=== PATIENT | female | born 1985 | race Caucasian/White ===

== ENCOUNTER 2022-09-25 18:23 | Emergency (ER) | payer MEDICAID, SELFPAY ==
--- NOTE | ~2022-09-25 | XR_ITS ---
EXAMINATION: XR HAND, LEFT CLINICAL INFORMATION: Injury with pain COMPARISON: None TECHNIQUE: PA, lateral, and oblique views of the left hand. FINDINGS: Subtle oblique linear lucency through the mid shaft of the fifth metacarpal suspicious for nondisplaced fracture. Correlate with focal pain at this location on exam. No additional fracture or dislocation. The joint spaces throughout the hand and wrist are maintained. XR/XR hand LT 2V IMPRESSION: Findings suspicious for a nondisplaced oblique fracture of the fifth metacarpal shaft.
[2022-09-25 18:24] VITALS: BP 138/91; PULSE 77; RESP 16; TEMP 36.6; O2SAT 99; BMI 22.8
--- NOTE | 2022-09-25 18:26 | ED_ITS ---
HPI - Extremity Injury (Upper) General Chief Complaint: Extremity Injury, Upper Stated Complaint: left wrist inj Time Seen by Provider: 09/25/22 19:01 Source: patient Mode of arrival: ambulatory Limitations: no limitations History of Present Illness HPI narrative: 37-year-old female previously healthy, [id number] here with left hand pain after an injury which occurred last evening. Patient denies any associated weakness, numbness or tingling of the extremity. Related Data Previous Rx's Medication Instructions Recorded ibuprofen 600 mg tablet 600 mg PO Q8H PRN pain #20 tabs 09/25/22 oxycodone 5 mg tablet 5 mg PO Q8H PRN pain #8 tabs 09/25/22 Allergies Allergy/AdvReac Type Severity Reaction Status Date / Time iodine Allergy Hives Verified 09/25/22 18:26 Review of Systems Review of Systems: Yes all other systems are reviewed and are negative Constitutional: Constitutional: Reports no additional constitutional complaints, Denies body ache(s), Denies chills, Denies fever(s), Denies headache(s) and Denies weakness Eyes: Eyes: Reports no additional eye complaints and Denies change in vision ENT: Reports system reviewed and no additional complaints, except as documented, Denies dizziness, Denies headache(s), Denies nasal congestion, Denies nasal discharge and Denies neck pain Cardiovascular: Cardiovascular: Reports no additional cardiovascular complaints, Denies chest pain, Denies leg edema and Denies dyspnea Respiratory: Respiratory: Reports no additional respiratory complaints, Denies cough and Denies dyspnea Gastrointestinal: Gastrointestinal: Reports no additional gastrointestinal complaints, Denies abdominal pain, Denies diarrhea, Denies nausea and Denies vomiting Genitourinary: Genitourinary: Reports no additional female genitourinary complaints and Denies urinary incontinence Musculoskeletal: Musculoskeletal: Reports no additional musculoskeletal complaints, Denies back pain, Reports arthralgias, Reports joint swelling, Reports limited range of motion, Denies neck pain, Denies numbness and Denies tingling Integumentary/Breasts: Skin/Breast: Reports system reviewed and no additional complaints, except as docu and Denies rash Neurologic: Reports system reviewed and no additional complaints, except as documented, Denies Abnormal speech present, Denies dizziness, Denies headache(s), Denies numbness, Denies tingling and Denies weakness [facility] Past Medical History Attestation statement: The following information was validated with the patient. Source: old records reviewed and nursing notes reviewed Physical Exam Vital Signs: Vital Signs: Last Vital Signs Temp 97.9 F 09/25/22 18:24 Pulse 77 09/25/22 18:24 Resp 16 09/25/22 18:24 BP 138/91 H 09/25/22 18:24 Pulse Ox 99 09/25/22 18:24 O2 Del Method 09/25/22 18:24 BMI result Body Mass Index 22.8 Const: General: cooperative, healthy appearing, comfortable and no acute distress Orientation/consciousness: patient oriented x3 Limitations: no limitations HEENT: Head: Yes normal to inspection Ears: hearing grossly normal bilaterally General nose exam: Normal external nose present Face and sinus: Yes normal facial exam Mouth: Normal oral and palatal mucosa present Throat: Yes posterior oropharynx normal Eyes: General: appearance normal, both eyes and all related structures Pupils: Equal, round and reactive pupils present Neck: Neck: Yes normal visual inspection Chest: Chest palpation & inspection: normal inspection of the chest Resp: Effort & Inspection: normal respiratory effort Auscultation: clear to auscultation bilaterally Cardio: Rate: regular rate Rhythm: regular rhythm Peripheral pulses: Peripheral pulses 2+ throughout GI: Inspection: Yes normal to inspection Palpation (GI): Soft to palpation and nontender Auscultation: normal bowel sounds Back/Spine/Pelvis: Thoracic/Lumbar Spine: thoracic and lumbar spine normal to inspection Skin: General skin exam: no rashes or lesions noted Neuro: General: patient oriented x3, no focal motor deficits and normal sensation to monofilament Cranial nerves: Yes Equal, round and reactive pupils present Cognition (Neuro): normal cognition Speech: No Abnormal speech present Gait exam (Neuro): Normal gait present Motor exam (neuro): 5/5 motor strength present throughout Extrem: Other: Patient was swelling, bruising, tenderness over the left 5th meta carpal. Full range of motion. Neurovascular intact distally. General: Yes normal to inspection Course Course Course Narrative: This is a rapid medical exam. Defer additional HPI, ROS, PE department provider. 37-year-old female healthy here with left hand pain after an injury which occurred last evening. Will check x-rays. Vitals stable Medical Decision Making Medical Decision Making MDM Narrative: 37-year-old female [id number] here with left hand pain after an injury which occurred last evening. Will check x-rays. Differential Diagnosis Differential Diagnoses: The differential diagnosis associated with the presentation includes Fracture, contusion Independent Interpretation I performed an independent interpretation of an: Plain X-Ray (I independently reviewed the x-ray which shows a left 5th metacarpal fracture) Radiology Impression Discussion of test interpretation with radiology: I have reviewed the radiologist's reading. Radiologist Impression: XR/XR hand LT 2V IMPRESSION: Findings suspicious for a nondisplaced oblique fracture of the fifth metacarpal shaft. ? Prescription Management I considered prescription management with: Pain Medication Patient feels Motrin and Tylenol not be adequate for pain control. Will give short prescription of oxycodone Procedures Orthopedic Splinting/Casting Injury #1: Side: left Upper Extremity Injury Location: hand Upper Extremity Immobilizer: ulnar gutter Discharge Plan Discharge Clinical Impression: Fracture of hand Patient Disposition: Home, Self-Care Instructions: Hand Fracture (ED), Splint Care (ED) Additional Instructions: Splint has to try at all times Elevate the hand Call Orthopedics to follow Prescriptions: New oxycodone 5 mg tablet 5 mg PO Q8H PRN (Reason: pain) Qty: 8 0RF Rx Instructions: Partial Fill upon patient request. ibuprofen 600 mg tablet 600 mg PO Q8H PRN (Reason: pain) Qty: 20 0RF Referrals: [facility] [place] [facility] [Provider Group] - 1 week
== END 2022-09-25 20:17 | disposition home or self-care (01) ==
PROVIDERS: Emergency Provider Internal Medicine
DX: S62.92XA Unspecified fracture of left hand, initial encounter for closed fracture (principal); X50.1XXA Overexertion from prolonged static or awkward postures, initial encounter; Y93.83 Activity, rough housing and horseplay; Y92.032 Bedroom in apartment as the place of occurrence of the external cause; Y99.9 Unspecified external cause status
CPT/HCPCS: 29125; 73120; 99283; 99284

== ENCOUNTER 2022-10-02 11:01 | Outpatient (REF) | payer MEDICAID, SELFPAY ==
--- NOTE | ~2022-10-02 | XR_ITS ---
EXAMINATION: XR HAND, LEFT CLINICAL INFORMATION: M79.643 - Pain in unspecified hand COMPARISON: Radiographs left hand 09/25/2022 TECHNIQUE: PA, lateral, and oblique views of the left hand. FINDINGS: There is a comminuted fracture mid and distal shaft fifth metacarpal. No significant angulation or displacement. No destructive process. No dislocation. The remainder the bony structures appear intact. XR/XR hand LT min 3V IMPRESSION: Comminuted fracture fifth metacarpal.
== END 2022-10-02 11:02 | disposition home or self-care (01) ==
LOC: HO.HOSX 11:01
PROVIDERS: Visit Provider Physician Assistant
DX: S62.307A Unspecified fracture of fifth metacarpal bone, left hand, initial encounter for closed fracture (principal)
CPT/HCPCS: 29085; 73130; 99202

== ENCOUNTER 2022-10-31 14:00 | Outpatient (REF) | payer MEDICAID, SELFPAY ==
--- NOTE | ~2022-10-31 | XR_ITS ---
EXAMINATION: XR HAND, LEFT CLINICAL INFORMATION: Fracture COMPARISON: Previous x-rays September 2022 TECHNIQUE: PA, lateral, and oblique views of the left hand. FINDINGS: There is an oblique fracture of the midshaft of the fifth metacarpal bone. Fracture line is still seen. There is minimal surrounding bony callus formation. There is slight interval increase in displacement at the fracture with increasing radial and dorsal displacement of the distal fifth metacarpal bone with respect to the more proximal shaft. No other fracture is seen. Joint spaces and soft tissues are unremarkable. XR/XR hand LT min 3V IMPRESSION: Increasing displacement of the left fifth metacarpal shaft fracture.
== END 2022-10-31 14:01 | disposition home or self-care (01) ==
LOC: HO.HOSX 14:00
PROVIDERS: Visit Provider Physician Assistant
DX: S62.307D Unspecified fracture of fifth metacarpal bone, left hand, subsequent encounter for fracture with routine healing (principal)
CPT/HCPCS: 29085; 73130; 99212

== ENCOUNTER 2022-11-14 12:45 | Outpatient (REF) | payer MEDICAID, SELFPAY ==
--- NOTE | ~2022-11-14 | XR_ITS ---
EXAMINATION: XR HAND, LEFT CLINICAL INFORMATION: Left fifth metacarpal shaft fracture. Follow-up. COMPARISON: Radiographs left hand 10/31/2022, 10/02/2022 TECHNIQUE: The left hand is imaged in 3 views. FINDINGS: The oblique fracture mid shaft left fifth metacarpal is unchanged in alignment from the prior exam 10/31/2022. Again, there is mild lateral displacement distal fracture fragment. No angulation or distraction. Fracture line is still clearly visible. No bridging callus formation at this time. No dislocation. No acute bony abnormality. XR/XR hand LT min 3V IMPRESSION: No change in alignment 5th metacarpal shaft fracture from prior exam 10/31/2022.
== END 2022-11-14 12:46 | disposition home or self-care (01) ==
LOC: HO.HOSX 12:45
PROVIDERS: Visit Provider Physician Assistant
DX: S62.307D Unspecified fracture of fifth metacarpal bone, left hand, subsequent encounter for fracture with routine healing (principal); X58.XXXD Exposure to other specified factors, subsequent encounter
CPT/HCPCS: 73130; 99212